=== PATIENT | female | born 1990 | race Caucasian/White ===

== ENCOUNTER 2016-08-19 13:08 | Emergency (ER) | payer OTHER ==
[2016-08-19 13:15] VITALS: BP 131/75; PULSE 68; TEMP 97.4; BMI 34.2
--- NOTE | 2016-08-19 13:50 | PDOC ---
History of Present Illness - General Chief Complaint: Sore Throat Stated Complaint: SORE THROAT, COUGH Time Seen by Provider: 08/19/16 13:33 History Source: Patient Exam Limitations: No Limitations - History of Present Illness Initial Comments: CHIEF COMPLAINT: 26 y/o afebrile female with no significant PMH c/o cold symptoms since last night. HISTORY OF PRESENT ILLNESS: The patient states she developed a fever of 100.8, dry cough and sore throat last night. She took tylenol and went to bed. This morning the symptoms persisted so she took tylenol and came here. She denies TRISTAN , neck pain, body aches, runny nose, n/v/d, CP, SOB, abd pain. Vital signs on arrival are within normal limits. REVIEW OF SYSTEMS: GENERAL/CONSTITUTIONAL: + fever/chills. No weakness. No weight change. HEAD, EYES, EARS, NOSE AND THROAT: No change in vision. No ear pain or discharge. +sore throat. CARDIOVASCULAR: No chest pain or shortness of breath. RESPIRATORY: +dry cough. No wheezing, or hemoptysis. GASTROINTESTINAL: No abd pain, nausea, vomiting, diarrhea. GENITOURINARY: No dysuria, frequency, or change in urination. MUSCULOSKELETAL: No joint or muscle swelling or pain. No neck or back pain. SKIN: No rash or easy bruising. NEUROLOGIC: No headache, vertigo, loss of consciousness, or loss of sensation. PHYSICAL EXAM: GENERAL: The patient is awake, alert, and fully oriented, in no acute distress. She is well appearing, in NAD or obvious discomfort. HEAD: Normal with no signs of trauma. ENT: Pupils equal, round and reactive to light, extraocular movements intact, sclera anicteric, conjunctiva clear. Neck supple. TMs normal b/l. LUNGS: Clear to auscultation bilaterally. Normal excursion. No respiratory distress or use of accessory muscles. CV: RRR, S1/S2, no MRG. Cap refill < 2 sec. ABDOMEN: Soft, non-distended, non-tender even to deep palpation, no hepatomegaly or splenomegaly, no masses. EXTREMITIES: Normal range of motion, no edema. NEUROLOGICAL: Normal speech, normal gait. CN II-XII grossly intact. PSYCH: Normal mood, normal affect. SKIN: Warm, dry, normal turgor, no rashes or lesions noted. Past History - Past Medical History Allergies/Adverse Reactions: Allergies Allergy/AdvReac Type Severity Reaction Status Date / Time No Known Allergies Allergy Verified 08/19/16 13:12 Home Medications: Ambulatory Orders NK [No Known Home Medication] 04/02/16 Other medical history: NONE - Psycho/Social/Smoking Cessation Hx Anxiety: No Suicidal Ideation: No Smoking History: Never smoked Have you smoked in the past 12 months: No Information on smoking cessation initiated: No Hx Alcohol Use: No Drug/Substance Use Hx: No Substance Use Type: None *Physical Exam - Vital Signs Last Vital Signs Temp Pulse Resp BP Pulse Ox 97.4 F L 68 18 131/75 100 08/19/16 13:13 08/19/16 13:13 08/19/16 13:13 08/19/16 13:13 08/19/16 13:13 Medical Decision Making - Medical Decision Making A/P: 26 y/o afebrile female with viral URI. Instructed the patient to continue taking 650mg of tylenol every 4 hours for fever, take over the counter cough medicine, gargle with warm salt water, drink plenty of fluids and get lots of rest and f/u with her doctor by the end of the week. Suggested she return to the ER with any worsening or concerning symptoms. The patient verbalizes understanding of all instructions, has no further questions and is awaiting discharge. *DC/Admit/Observation/Transfer Diagnosis at time of Disposition: Viral URI with cough - Discharge Dispostion Disposition: HOME Condition at time of disposition: Good - Referrals Referrals: Linnea Tian MD [Primary Care Provider] - - Patient Instructions Printed Discharge Instructions: DI for Viral Upper Respiratory Infection -- Adult Additional Instructions: Discharge Instructions: -Take 650mg of Tylenol every 4 hours for fever -Gargle with warm salt water -Take over the counter cough medicine -Drink plenty of fluids and get lots of rest -Follow up with your doctor by the end of the week Print Language: STATELESS
== END 2016-08-19 13:53 | disposition home or self-care (01) ==
LOC: JERFT 13:08
DX: J06.9 Acute upper respiratory infection, unspecified (principal); B97.89 Other viral agents as the cause of diseases classified elsewhere
CPT/HCPCS: 99281-25

== ENCOUNTER 2016-10-23 08:45 | Emergency (ER) | payer OTHER ==
[2016-10-23 08:49] VITALS: BP 134/73; PULSE 82; TEMP 99; BMI 31.8
--- NOTE | 2016-10-23 09:45 | PDOC ---
History of Present Illness - General Chief Complaint: Sore Throat Stated Complaint: FEVER, SORE THROAT, HEADACHE Time Seen by Provider: 10/23/16 09:08 History Source: Patient Exam Limitations: No Limitations - History of Present Illness Initial Comments: 10/23/16 09:45 26 yr male with c/o sore throat and cough for one day. Pt was sneezing this am. Father states he has allergies and asthma. no fever, no abd pain or vomiting. Past History - Past Medical History Allergies/Adverse Reactions: Allergies Allergy/AdvReac Type Severity Reaction Status Date / Time No Known Allergies Allergy Verified 10/23/16 08:49 Home Medications: Ambulatory Orders Penicillin V Potassium [Pen Vee K -] 500 mg PO TID #30 tablet 10/23/16 Other medical history: NONE - Psycho/Social/Smoking Cessation Hx Anxiety: No Suicidal Ideation: No Smoking History: Never smoked Have you smoked in the past 12 months: No Hx Alcohol Use: No Drug/Substance Use Hx: No Substance Use Type: None *Physical Exam - Vital Signs Last Vital Signs Temp Pulse Resp BP Pulse Ox 99.0 F 82 20 134/73 98 10/23/16 08:46 10/23/16 08:46 10/23/16 08:46 10/23/16 08:46 10/23/16 08:46 - Physical Exam General Appearance: Yes: Nourished, Appropriately Dressed HEENT: positive: EOMI, VONDA, Pharyngeal Erythema, Tonsillar Erythema, Nasal Congestion Neck: positive: Supple Respiratory/Chest: positive: Lungs Clear, Normal Breath Sounds Cardiovascular: positive: Regular Rhythm, Regular Rate Gastrointestinal/Abdominal: positive: Normal Bowel Sounds, Soft Extremity: positive: Normal Capillary Refill, Normal Inspection, Normal Range of Motion Integumentary: positive: Normal Color, Dry, Warm Neurologic: positive: Fully Oriented, Alert, Normal Mood/Affect, Normal Response , Motor Strength 5/5 Medical Decision Making - Medical Decision Making 10/23/16 10:05 cc: sore throat, nasal congestion will check for strep and flu pt speaking full sentences , no drooling or trismus *DC/Admit/Observation/Transfer Diagnosis at time of Disposition: Strep pharyngitis - Discharge Dispostion Disposition: HOME Condition at time of disposition: Good - Prescriptions Prescriptions: Penicillin V Potassium [Pen Vee K -] 500 mg PO TID #30 tablet - Patient Instructions Additional Instructions: take the penicillin as prescribed for 10 days, finish all the pills gargle with warm salt water 4-5 times a day ice pops, jello, ice cream soft foods take motrin or tylenol (over the counter) for pain as needed throw out toothbrush at end of treatment follow with your doctor if getting worse do not share utensils or drink from same source
== END 2016-10-23 10:17 | disposition home or self-care (01) ==
LOC: JERFT 08:45
DX: J02.0 Streptococcal pharyngitis (principal); B95.0 Streptococcus, group A, as the cause of diseases classified elsewhere
CPT/HCPCS: 87070; 87430; 87804; 99281-25

== ENCOUNTER 2019-03-19 17:10 | Emergency (ER) | payer OTHER ==
--- NOTE | 2019-03-19 17:21 | PDOC ---
Rapid Medical Evaluation Chief Complaint: Headache Time Seen by Provider: 03/19/19 17:18 Medical Evaluation: Allergies Allergy/AdvReac Type Severity Reaction Status Date / Time No Known Allergies Allergy Verified 10/23/16 08:49 03/19/19 17:19 I have performed a brief in-person evaluation of this patient. The patient presents with a chief complaint of: headache with dizziness / Nausea , saw Neurologist yesterday but not better with new treatments Pertinent physical exam findings: A&Ox3 I have ordered the following: UA, UCG The patient will proceed to the ED for further evaluation. Discharge Disposition - Diagnosis Headache - Referrals - Patient Instructions - Post Discharge Activity
[2019-03-19 17:22] VITALS: TEMP 99.3; BMI 28.3
--- NOTE | 2019-03-19 18:47 | PDOC ---
History of Present Illness - General Chief Complaint: Headache Stated Complaint: HEADACHE DIZZY Time Seen by Provider: 03/19/19 17:18 History Source: Patient - History of Present Illness Initial Comments: 03/19/19 19:33 28 year old female with history of migraines c/o headache, dizziness and nausea x1 day. patient reports that this is similar presentation of her previous migraines. patient is currently on every day medication to prevent migraines. denies weakness, abdominal pain, chest pain, urinary symptoms, fever/ vchill, neck pain / stiffness. denies photophobia/ phonophobia PMHX: Migraines 03/19/19 19:47 03/19/19 19:48 Past History - Past Medical History Allergies/Adverse Reactions: Allergies Allergy/AdvReac Type Severity Reaction Status Date / Time No Known Allergies Allergy Verified 03/19/19 17:19 Home Medications: Ambulatory Orders NK [No Known Home Medication] 03/19/19 COPD: No CHF: No - Immunization History Immunization Up to Date: Yes - Suicide/Smoking/Psychosocial Hx Smoking History: Never smoked Have you smoked in the past 12 months: No Information on smoking cessation initiated: No Hx Alcohol Use: No Drug/Substance Use Hx: No Substance Use Type: None Review of Systems - Review of Systems Able to Perform ROS?: Yes Is the patient limited Italian proficient: No Constitutional: No: Symptoms Reported, See HPI, Chills, Diaphoresis, Fever, Loss of Appetite, Malaise, Night Sweats, Weakness, Weight Stable, Unintentional Wgt. Loss, Unexplained wgt Loss, Other HEENTM: No: Symptoms Reported, See HPI, Eye Pain, Blurred Vision, Tearing, Recent change in vision, Double Vision, Cataracts, Ear Pain, Ocular Prothesis, Ear Discharge, Nose Pain, Nose Congestion, Tinnitus, Nose Bleeding, Hearing Loss , Throat Pain, Throat Swelling, Mouth Pain, Dental Problems, Difficulty Swallowing, Mouth Swelling, Other ABD/GI: Yes: Nausea. No: Symptoms Reported, See HPI, Abdominal Distended, Abd. Pain w/ defecation, Blood Streaked Bowels, Constipated, Diarrhea, Difficulty Swallowing, Poor Appetite, Poor Fluid Intake, Rectal Bleeding, Vomiting, Indigestion, Abdominal cramping, Tarry Stools, Other Neurological: Yes: Headache, Dizziness. No: Symptoms reported, See HPI, Numbness, Paresthesia, Pre-Existing Deficit, Seizure, Tingling, Tremors, Weakness, Unsteady Gait, Ataxia, Other *Physical Exam - Vital Signs Last Vital Signs Temp Pulse Resp BP Pulse Ox 99.3 F 76 17 151/75 100 03/19/19 17:19 03/19/19 17:19 03/19/19 17:19 03/19/19 17:19 03/19/19 17:19 - Physical Exam General Appearance: Yes: Appropriately Dressed HEENT: positive: Normal ENT Inspection Respiratory/Chest: positive: Lungs Clear, Normal Breath Sounds Cardiovascular: positive: Regular Rhythm, Regular Rate Gastrointestinal/Abdominal: positive: Normal Bowel Sounds, Soft. negative: Tender Extremity: positive: Normal Capillary Refill, Normal Inspection, Normal Range of Motion Integumentary: positive: Normal Color, Dry, Warm Neurologic: positive: cloth neutralizer II-XII NML intact, Fully Oriented, Alert, Normal Mood/ Affect, Normal Response, Motor Strength 12/06 ED Treatment Course - LABORATORY CBC & Chemistry Diagram: 03/19/19 19:05 03/19/19 19:05 Progress Note - Progress Note Progress Note: A: migraines P: cbc cmp ua IVF reglan benadryl Medical Decision Making - Medical Decision Making 03/19/19 22:01 patient is now feeling better US: hepatic steaosis. will d/c home *DC/Admit/Observation/Transfer Diagnosis at time of Disposition: Elevated LFTs Headache Qualifiers: Headache type: unspecified Headache chronicity pattern: acute headache Intractability: not intractable Qualified Code(s): R51 - Headache - Discharge Dispostion Disposition: HOME - Referrals Referrals: Brianne Blunt DO [Staff Physician] - - Patient Instructions Printed Discharge Instructions: DI for Migraine Additional Instructions: drink plenty of fluids. follow-up with your neurologist as soon as possible. Continue your migraine medications. You are also given a referral for a machinist mate. Follow-up with the primary doctor or a machinist mate for elevated liver test. Return to the emergency room for any worsening symptoms. - Post Discharge Activity Forms/Work/School Notes: Back to Work
[2019-03-19] MEDS ORDERED: METOCLOPRAMIDE HCL INJECTION 10 MG/2 ML VIAL IVPB ONE (18:50)
[2019-03-19] MEDS ORDERED: SODIUM CHLORIDE 1,000 ML IV STA (18:50)
[2019-03-19] MEDS ORDERED: METOCLOPRAMIDE HCL INJECTION 10 MG/2 ML VIAL ONE (19:17)
[2019-03-19 19:39] LABS: BASO % 0.6 % (0-2.0); EOS % 3.4 % (0-4.5); HEMATOCRIT 41.1 % (32.4-45.2); LYMPH % 27.1 % (8-40); MCH 29.6 pg (25.7-33.7); MCHC 34.2 g/dl (32.0-36.0); MEAN CELL VOLUME 86.6 fl (80-96); MEAN PLT VOLUME 9.9 fl (7.5-11.1); MONO % 5.6 % (3.8-10.2); NEUT % 63.3 % (42.8-82.8); PLATELET COUNT 269 K/MM3 (134-434); RBC 4.75 M/mm3 (3.60-5.2); RDW 13.5 % (11.6-15.6); WHITE BLOOD COUNT 11.6 K/mm3 (4.0-10.0)
[2019-03-19 19:45] LABS: URINE APPEARANCE CLEAR; URINE BILIRUBIN NEGATIVE (NEGATIVE); URINE COLOR YELLOW; URINE GLUCOSE (UA) NEGATIVE (NEGATIVE); URINE KETONE NEGATIVE (NEGATIVE); URINE LEUK ESTERASE NEGATIVE (NEGATIVE); URINE NITRITE NEGATIVE (NEGATIVE); URINE PROTEIN NEGATIVE (NEGATIVE); URINE UROBILINOGEN 0.2 mg/dL (0.2-1.0)
[2019-03-19 20:05] LABS: ALBUMIN 3.8 g/dl (3.4-5.0); BILIRUBIN,TOTAL 0.3 mg/dL (0.2-1); BLOOD UREA NITROGEN 11.3 mg/dL (7-18); CALCIUM 9.5 mg/dL (8.5-10.1); CREATININE 0.7 mg/dL (0.55-1.3); POTASSIUM 4.3 mmol/L (3.5-5.1); TOT PROT 7.1 g/dl (6.4-8.2)
[2019-03-19] MEDS ORDERED: KETOROLAC TROMETHAMINE 30 MG/1 ML VIAL IVPUSH ONE (21:04)
[2019-03-19] MEDS ORDERED: KETOROLAC TROMETHAMINE 30 MG/1 ML VIAL ONE (21:06)
[2019-03-19 22:15] VITALS: BP 130/75; PULSE 70
== END 2019-03-19 22:15 | disposition home or self-care (01) ==
LOC: JER 17:10
PROC: 3E033GC Introduction of Other Therapeutic Substance into Peripheral Vein, Percutaneous Approach (ICD-10-PCS; principal; 2019-03-19)
PROC: 3E0333Z Introduction of Anti-inflammatory into Peripheral Vein, Percutaneous Approach (ICD-10-PCS; 2019-03-19)
PROC: 3E0337Z Introduction of Electrolytic and Water Balance Substance into Peripheral Vein, Percutaneous Approach (ICD-10-PCS; 2019-03-19)
DX: R94.5 Abnormal results of liver function studies (principal)
CPT/HCPCS: 36415; 76705-TC; 80053; 81003; 84703; 85025; 96361; 96374; 96375; 99283-25; J7030

== ENCOUNTER 2020-02-02 10:45 | Inpatient (IN) | payer OTHER ==
[2020-02-02] MEDS ORDERED: CITRIC ACID/SODIUM CITRATE 30 ML UNIT-DOSE CUP PO ONE (12:49)
--- NOTE | 2020-02-02 12:53 | HP ---
Past Medical History - Admission Chief Complaint: Scheduled RLTCS History of Present Illness: 29yo @ 39.0wks by LMP/sono, VINNY 02/08/20 here for RLTCS, no BTL secondary to late signing of consent No VB/LOF. No ctx. 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: No: Alzheimer's, CVA, Dementia, Migraine, Multiple Sclerosis, Peripheral Neuropathy, Parkinson's, Seizure, Syncope, TIA, Vertigo, Other Cardiovascular: No: AFIB, Aneurysm, Aortic Insufficiency, Aortic Stenosis, CAD, CHF, Deep Vein Thrombosis, HTN, Hyperlipdemia, GA, Mitral Insufficiency, Mitral Stenosis, Murmur, Pulmonary Hypertension, Other Pulmonary: No: Asthma, Bronchitis, Cancer, COPD, O2 Dependent, Pneumonia, Previously Intubated, Pulmonary Embolus, Pulmonary Fibrosis, Sleep Apnea, Other Gastrointestinal: No: Ascites, Cancer, Constipation, Crohn's Disease, Diverticulitis, Diverticulosis, Esophageal Varices, Gastritis, GERD, GI Bleed, Hemorrhoids, Hiatal Hernia, Inflamatory Bowel Disease, Irritable Bowel Disease, Pancreatitis, Peptic Ulcer Disease, Ulcerative Colitis, Other Hepatobiliary: No: Cirrhosis, Cholelithiasis, Cholecystitis, Choledocholithiasis, Hepatitis A, Hepatitis B, Hepatitis C, Other Reproductive: No: Ectopic , Endometriosis, Fibroids, PID, Polycystic Ovary Syndrome, Postmenopausal, Other ...: 3 ...Para: 2 ...Term: 2 ...: 0 ...Spon : 0 ...Induced : 0 ... Weeks Gestation by Dates: 39.0 Heme/Onc: Yes: Anemia Infectious Disease: No: AIDS, C-Diff, Herpes Zoster, HIV, MRSA, STD's, Tuberculosis, VREF, Other Psych: No: Addictions, Anxiety, Bipolar, Depression, Panic, Psychosis, Schizophrenia, Other - Past Surgical History Past Surgical History: Yes: Hx Myomectomy: No Hx Transabdominal Cerclage: No - Smoking History Smoking history: Never smoked Have you smoked in the past 12 months: No - Alcohol/Substance Use Hx Alcohol Use: No History of Substance Use: reports: None - Social History Usual Living Arrangement: Yes: With Spouse Do you think of yourself as: Straight/Heterosexual ADL: Independent History of Recent Travel: No Home Medications - Allergies Allergies/Adverse Reactions: Allergies Allergy/AdvReac Type Severity Reaction Status Date / Time No Known Allergies Allergy Verified 02/02/20 12:39 - Home Medications Home Medications: Ambulatory Orders Breast Pump 1 each MC 5XD 30 Days #1 each 02/02/20 Ferrous Sulfate [Feosol] 325 mg PO DAILY #30 tablet 02/02/20 Ibuprofen 600 mg PO Q6H PRN #30 tablet 02/02/20 Oxycodone HCl/Acetaminophen [Percocet 5-325 mg Tablet -] 1 - 2 tab PO Q6H PRN #20 tab MDD 4 02/02/20 Review of Systems - Review of Systems Constitutional: reports: No Symptoms Cardiovascular: reports: No Symptoms Respiratory: reports: No Symptoms Physical Exam - Maternity - Abdominal Exam/OB Number of Fetuses: Single Presentation: Vertex Contractions: No Monitor Mode: External Heart Rate Location: [facility] Category: I Accelerations: Non-Uniform Decelerations: None - Vaginal Exam/OB Vaginal Bleeding: No Speculum Exam: No Amniotic Membrane Status: Intact Presentation: Vertex/Position - Physical Exam Edema: No Imaging - Results Ultrasound: Report Reviewed Problem List - Problems (1) 39 weeks gestation of Code(s): Z3A.39 - 39 WEEKS GESTATION OF Assessment/Plan 29yo @ 39+wks here for scheduled RLTCS Admit to L&D NPO,IVFs Cat I tracing Spinal, Ybarra, SCDs, Ancef Risks reviewed including bleeding, infection and injury to bladder/bowel/vessels/adnexa/nerves. Unable to do BTL as patient signed consent on 01/12/2020, less than 30 days. All questions answered; consent signed. Carla Tena MD
[2020-02-02] MEDS ORDERED: ELECTROLYTE-148 SOLN 1,000 ML IV SCH (13:00)
[2020-02-02 13:17] VITALS: BMI 37.0
[2020-02-02] MEDS ORDERED: PHENYLEPHRINE HCL 10 MG/1 ML SINGLE DOSE VIAL ONE (14:10)
[2020-02-02] MEDS ORDERED: ceFAZolin SODIUM 1 GM VIAL ONE (14:10)
[2020-02-02] MEDS ORDERED: morphine SULFATE/PF 0.5 MG/ML (2cc Syringe - QUVA) ONE (14:10)
[2020-02-02] MEDS ORDERED: MIDAZOLAM HCL 2 MG/2 ML SINGLE DOSE VIAL ONE (15:02)
[2020-02-02] MEDS ORDERED: OXYTOCIN 10 UNITS/ML VIAL ONE ×2 (15:17)
[2020-02-02] MEDS ORDERED: IBUPROFEN 600 MG TABLET (FP) PO PRN (15:33)
[2020-02-02] MEDS ORDERED: oxyCODONE HCL 5 MG TABLET PO PRN (15:33)
[2020-02-02] MEDS ORDERED: METHYLERGONOVINE MALEATE 0.2 MG/1 ML AMP IM PRN (15:33)
--- NOTE | 2020-02-02 15:33 | OP ---
Operative Note - Note: Operative Date: 02/02/20 Pre-Operative Diagnosis: 2 prior C/S, desires Repeat Operation: Repeat Findings: VFI, Direct OP, Double nuchal, true knot, Apgars 9/9. Weight 7lbs 4oz. Left tube and ovary palpably normal, Right tube and ovary not visualized secondary to adhesions Implants: Surgicele Post-Operative Diagnosis: Same as Pre-op Surgeon: Julieth Tena Molder Inflated Ball: Markie Alonso Anesthesiologist/PRODUCTION TRUCK DRIVER: Tre Maza Anesthesia: Spinal Estimated Blood Loss (mls): 800 Drains, Volume Out (mls): 200 (clear urine) Operative Report Dictated: Yes
[2020-02-02] MEDS ORDERED: IBUPROFEN 800 MG/8 ML IJ IVPB PRN (15:34)
[2020-02-02] MEDS: OXYTOCIN 20 UNITS in 0.9% NS 20 UNIT/1,000 ML INFUS.BAG IV SCH ×2 (16:00→23:52)
[2020-02-02] MEDS: FERROUS SO4 325 MG TABLET (FP) PO SCH (18:37)
[2020-02-03] MEDS: ACETAMINOPHEN 325 MG TABLET (FP) PO PRN ×3 (06:00→21:21)
[2020-02-03] MEDS: SIMETHICONE 80 MG TAB.CHEW (FP) PO PRN ×3 (06:00→21:21)
[2020-02-03] MEDS: IBUPROFEN 600 MG TABLET (FP) PO PRN ×3 (06:00→21:21)
--- NOTE | 2020-02-03 07:25 | PN ---
Post Progress Note - Subjective Subjective: Pain controlled. No fevers/chills. No N/V. Post Day: 1 Type of Delivery: Repeat C/S Vital Signs: Vital Signs Temperature 98.8 F 02/03/20 06:00 Pulse Rate 74 02/03/20 06:00 Respiratory Rate 18 02/03/20 06:00 Blood Pressure 102/65 02/03/20 06:00 O2 Sat by Pulse Oximetry (%) 100 02/02/20 16:10 Uterus: Yes: Fundus Firm Incision: Yes: Dressing dry and intact, Ubtch intact Abdomen/GI: Yes: Abdomen soft, Tolerating PO Lochia: Yes: Rubra Lochia, amount: Small Extremities: Yes: Calves non-tender Perineum: Yes: Intact Activity: Ambulating Problem List - Problems (1) 39 weeks gestation of Code(s): Z3A.39 - 39 WEEKS GESTATION OF Assessment/Plan 29yo s/p RLTCS, POD#1 Routine PP care PO pain control Labs pending OOB, ambulate D/C to [place] Anticipate D/C by POD#3 Carla Tena MD
[2020-02-03] MEDS: FERROUS SO4 325 MG TABLET (FP) PO SCH ×2 (08:00→17:13)
[2020-02-03 08:11] LABS: BASO % 0.3 % (0-2.0); EOS % 1.1 % (0-4.5); HEMATOCRIT 32.5 % (32.4-45.2); HEMOGLOBIN 10.7 GM/dL (10.7-15.3); LYMPH % 15.6 % (8-40); MCH 29.2 pg (25.7-33.7); MCHC 33.1 g/dl (32.0-36.0); MEAN CELL VOLUME 88.4 fl (80-96); MEAN PLT VOLUME 10.3 fl (7.5-11.1); MONO % 5.8 % (3.8-10.2); NEUT % 77.2 % (42.8-82.8); PLATELET COUNT 176 K/MM3 (134-434); RBC 3.67 M/mm3 (3.60-5.2); RDW 13.6 % (11.6-15.6); WHITE BLOOD COUNT 11.3 K/mm3 (4.0-10.0)
--- NOTE | 2020-02-03 10:03 | PN ---
Progress Note (short form) - Note Progress Note: s/p C/s with spinal and intrathecal Duramorph. Doing well, no complaints, ambulating. All questions answered.
[2020-02-03] MEDS: PRENATAL VITAMINS W/ FOLIC ACID TABLET (FP) PO SCH (10:09)
--- NOTE | 2020-02-03 11:24 | OP ---
DATE OF OPERATION: 02/02/2020 PREOPERATIVE DIAGNOSES: A 39-week , 2 prior sections, desires repeat section. POSTOPERATIVE DIAGNOSES: A 39-week , 2 prior sections, desires repeat section. PROCEDURE: Repeat low transverse section. ANESTHESIA: Spinal. ANESTHESIOLOGIST: Tre Maza MD SURGEON: Julieth Tena MD MECHANICAL LEAD: ROXANA Zaldivar ESTIMATED BLOOD LOSS: 800. INTRAVENOUS FLUIDS: Per anesthesia record. URINE OUTPUT: Clear urine, 200 mL, at the end of the procedure. FINDINGS: A viable female , direct OP presentation, double nuchal, true knot, Apgars 9, 9, weight pending. Left tube and ovary palpably normal. Right tube and ovary not visualized secondary to adhesions. COMPLICATIONS: None. CONDITION: Stable to recovery room. NATURE OF THE PROCEDURE: After the appropriate consents were signed patient was taken to the operating room. Spinal anesthesia was administered. The abdomen was prepped and draped in the normal sterile fashion. A sterile Ybarra catheter was inserted prior to entry into the operating room. Timeout was performed, confirming correct patient and procedure. A Pfannenstiel incision was made through the previous incision, carried through the underlying layers until the fascia was nicked in the midline. Fascia was noted to be dense and the fascia was extended laterally with the scalpel and with the Bovie. The inferior aspect of the fascia was grasped with the Lula clamps, tented upwards and the rectus muscles were dissected off with the Mckeon scissors. Attention was then paid to the superior aspect which had to be taken down with the scalpel again secondary to dense adhesions. The rectus muscles were sharply in the midline with the scalpel. There were several thin filmy dense adhesions from the anterior uterine wall to the anterior abdominal wall. The thin adhesions were taken down with the Bovie and Metzenbaum scissors. Dense adhesions, however, could not be taken down. There were dense adhesions to the uterine fundus that prevented mobilization and the ability to exteriorize the uterus postprocedure. There were adhesions on the lateral aspect of the uterus which also prevented visualization of the adnexa completely. The uterus was incised in a low transverse fashion. Clear amniotic fluid was noted. The infant was noted to be in direct OP presentation. The head was delivered without difficulty as were the remaining shoulder and body. The cord was clamped and cut. The infant was handed off to the waiting NICU staff. The placenta was then removed manually. The uterus was cleared of all clot and debris. Again, the uterus could not be exteriorized secondary to adhesions. The hysterotomy was closed in 2 layers with a 1-0 and 0 Vicryl to achieve hemostasis. Intercede was then placed over the patient's hysterotomy as well as areas where the filmy adhesions had been taken down. This was placed to prevent further adhesion formation. The fascia was then closed with a 0 Vicryl. The subcutaneous fat was closed with a 3-0 plain. The skin was closed with leobardo. All sponge, lap, needle counts were correct x3. The patient did receive Ancef at the start of the procedure. Patient did consent for tubal ligation; however, it was done under 30 days and could not be performed at the time of the operation because of this. However, patient was counseled that secondary to adhesions tubal ligation could not be performed regardless and that she will have to pursue LARCs or an interval salpingectomy in the future. She was taken from the operating room to the recovery area in stable condition. MD JAMIE SALGUERO/[id number] MTDTanya
[2020-02-03] MEDS ORDERED: BISACODYL 10 MG SUPP.RECT RC PRN (15:33)
--- NOTE | 2020-02-04 06:58 | DS ---
Physical Exam-DECK ENGINEER Vital Signs: Vital Signs Temperature 98.7 F 02/03/20 22:00 Pulse Rate 86 02/03/20 22:00 Respiratory Rate 18 02/03/20 22:00 Blood Pressure 134/84 02/03/20 22:00 O2 Sat by Pulse Oximetry (%) 100 02/02/20 16:10 Constitutional: Yes: Well Nourished, No Distress, Calm Eyes: Yes: WNL, Conjunctiva Clear, EOM Intact HENT: Yes: WNL, Atraumatic, Normocephalic Neck: Yes: WNL, Supple, Trachea Midline Cardiovascular: Yes: WNL, Regular Rate and Rhythm Respiratory: Yes: WNL, Regular, CTA Bilaterally Gastrointestinal: Yes: WNL ...Rectal Exam: Yes: WNL Renal/: Yes: WNL ....Post : Yes: Uterus firm, Uterus non-tender, Slight lochia rubra Breast(s): Yes: WNL Musculoskeletal: Yes: WNL Extremities: Yes: WNL Integumentary: Yes: WNL Wound/Incision: Yes: Clean/Dry, Well Approximated, Sutures Intact Neurological: Yes: WNL, Alert, Oriented ...Motor Strength: WNL Psychiatric: Yes: WNL, Alert, Oriented Labs: CBC, BMP 02/03/20 07:19 Delivery - Delivery Section: Repeat, Low Flap Transverse Type of Anesthesia: Spinal Episiotomy/Laceration: None EBL (cc): 800 Delivery, Single - Stages of Labor Date of Delivery: 02/02/20 Time of Delivery: 14:40 Time Placenta Delivered: 14:41 Placenta: Yes: Expressed - Condition of Infant Ophthalmic Photographer/Human Resources Safety Manager Present: Yes Name: Brittany Olmos Gender: Female Weight: 7 lb 4 oz Position: OP Total Hours ROM (Hrs/Mins): 2 - 1 Minute Total Score: 9 5 Minutes Total Score: 9 - Feeding Plan Initial Plan: Elected not to breastfeed exclusively throughout hospitalization Discharge Summary Problems reviewed: Yes Reason For Visit: Current Active Problems 39 weeks gestation of (Acute) Procedures: Principal: repeat c/s Hospital Course: no complication Plan of Treatment: follow up HR 1 week Condition: Stable - Instructions Diet, Activity, Other Instructions: Regular Diet Follow up in one week to have your leobardo removed Referrals: Julieth Tena MD [Staff Physician] - Disposition: HOME - Home Medications Comprehensive Discharge Medication List: Ambulatory Orders Breast Pump 1 each MC 5XD 30 Days #1 each 02/02/20 Ferrous Sulfate [Feosol] 325 mg PO DAILY #30 tablet 02/02/20 Ibuprofen 600 mg PO Q6H PRN #30 tablet 02/02/20 Oxycodone HCl/Acetaminophen [Percocet 5-325 mg Tablet -] 1 - 2 tab PO Q6H PRN #20 tab MDD 4 02/02/20
[2020-02-04 08:29] VITALS: BP 113/75; PULSE 83; TEMP 98.6
[2020-02-04] MEDS: FERROUS SO4 325 MG TABLET (FP) PO SCH (09:02)
[2020-02-04] MEDS: PRENATAL VITAMINS W/ FOLIC ACID TABLET (FP) PO SCH (09:03)
[2020-02-04] MEDS: IBUPROFEN 600 MG TABLET (FP) PO PRN (11:18)
[2020-02-04] MEDS: ACETAMINOPHEN 325 MG TABLET (FP) PO PRN (11:19)
[2020-02-04] MEDS: SIMETHICONE 80 MG TAB.CHEW (FP) PO PRN (11:19)
--- NOTE | 2020-02-07 17:48 | PATH ---
Surgical Pathology Report Patient Name: MELINA ALBERTO Med. Rec. 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 TRIVASCULAR CORD WITH A TRUE KNOT. MEMBRANES WITH NO DIAGNOSTIC ABNORMALITIES. Electronically Signed Monique Wharton M.D. Gross Description The specimen is received fresh labeled placenta and is a 394 gram, 19.5 x 18.0 x 2.2 cm. placenta with attached membranes and umbilical cord. The attached membranes are sullivan, translucent with focal opacities and insert marginally. The umbilical cord measures 51 cm. in length and averages 1.2 cm. in diameter. The cord inserts eccentrically, 1 cm. to the nearest margin. There is a true knot present in the umbilical cord. Cut surface of the umbilical cord reveals 3 vessels. The surface is solorzano-blue with minimal fibrin deposition and appropriate caliber vessels. The maternal surface is red-brown with focal defects. Sectioning reveals red-brown, spongy parenchyma. No lesions are identified. Projection Engineer sections are submitted in three cassettes as follows: 1- membrane rolls and umbilical cord; 2-3- full thickness sections of placenta. /02/03/2020 saudi/02/03/2020
== END 2020-02-04 13:15 | disposition home or self-care (01) | DRG 540 ==
LOC: J3W 10:45 → JLDR 11:02 → J3W 11:34 → JLDR 12:58 → J3W 16:40
PROVIDERS: ADMIT Obstetrics & Gynecology; ATTEND Obstetrics & Gynecology
PROC: 10D00Z1 Extraction of Products of Conception, Low, Open Approach (ICD-10-PCS; principal; 2020-02-02)
PROC: 0DNW0ZZ Release Peritoneum, Open Approach (ICD-10-PCS; 2020-02-02)
DX: O34.211 Maternal care for low transverse scar from previous cesarean delivery (principal); O69.2XX0 Labor and delivery complicated by other cord entanglement, with compression, not applicable or unspecified; O99.89 Other specified diseases and conditions complicating pregnancy, childbirth and the puerperium; N73.6 Female pelvic peritoneal adhesions (postinfective); Z3A.39 39 weeks gestation of pregnancy; Z37.0 Single live birth
CPT/HCPCS: 36415; 85025; 88307-TC

== ENCOUNTER 2021-08-01 10:04 | Emergency (ER) | payer OTHER ==
[2021-08-01 10:23] VITALS: BP 129/79; PULSE 77; TEMP 97.9; BMI 36.6
[2021-08-01 11:42] LABS: BASO % 0.4 % (0-2.0); EOS % 2.3 % (0-4.5); HEMATOCRIT 38.7 % (32.4-45.2); HEMOGLOBIN 13.5 GM/dL (10.7-15.3); LYMPH % 19.9 % (8-40); MCH 29.7 pg (25.7-33.7); MCHC 34.8 g/dl (32.0-36.0); MEAN CELL VOLUME 85.5 fl (80-96); MONO % 6.7 % (3.8-10.2); NEUT % 70.7 % (42.8-82.8); PLATELET COUNT 186 10^3/uL (134-434); RBC 4.53 M/mm3 (3.60-5.2); RDW 12.8 % (11.6-15.6); WHITE BLOOD COUNT 9.4 K/mm3 (4.0-10.0)
[2021-08-01 11:51] LABS: EPI CELLS >36 /uL (0-25.1); HYALINE CASTS 2 /uL (0-3.1); PH,URINE 5.5 (5.0-8.0); URINE APPEARANCE CLOUDY; URINE BACTERIA 3567 /uL (0-1359); URINE BILIRUBIN NEGATIVE (NEGATIVE); URINE COLOR YELLOW; URINE GLUCOSE (UA) NEGATIVE (NEGATIVE); URINE KETONE TRACE (NEGATIVE); URINE LEUK ESTERASE NEGATIVE (NEGATIVE); URINE NITRITE NEGATIVE (NEGATIVE); URINE PROTEIN TRACE (NEGATIVE); URINE RBC 27 /uL (0-23.9); URINE UROBILINOGEN 0.2 mg/dL (0.2-1.0); URINE WBC 7 /uL (0-25.8)
[2021-08-01 12:04] LABS: CALCIUM 8.9 mg/dL (8.5-10.1)
[2021-08-01 12:06] LABS: ALBUMIN 3.5 g/dl (3.4-5.0); BLOOD UREA NITROGEN 7.4 mg/dL (7-18)
[2021-08-01 12:10] LABS: CREATININE 0.6 mg/dL (0.55-1.3); TOT PROT 6.8 g/dl (6.4-8.2)
[2021-08-01 12:12] LABS: BILIRUBIN,TOTAL 0.6 mg/dL (0.2-1)
== END 2021-08-01 15:08 | disposition home or self-care (01) ==
LOC: JER 10:04 → JERFT 10:04
DX: O26.851 Spotting complicating pregnancy, first trimester (principal); Z3A.01 Less than 8 weeks gestation of pregnancy
CPT/HCPCS: 36415; 76817-TC; 80053; 81003; 84702; 84703; 85025; 86850; 86900; 86901; 87086; 99284-25

== ENCOUNTER 2021-10-17 04:19 | Day surgery (SDC) | payer OTHER ==
[2021-10-15 11:49] VITALS: BMI 36.6
[2021-10-17] MEDS ORDERED: LIDOCAINE HCL/PF 2% SDV 5ML VIAL ONE (10:34)
[2021-10-17] MEDS ORDERED: ONDANSETRON 4 MG/2 ML VIAL ONE (10:34)
[2021-10-17] MEDS ORDERED: DEXAMETHASONE SOD PHOSPHATE 4 MG/1 ML VIAL ONE (10:34)
[2021-10-17] MEDS ORDERED: PROPOFOL 20 ML ONE (10:34)
[2021-10-17] MEDS ORDERED: ROCURONIUM BROMIDE 100 MG/10 ML VIAL ONE (10:34)
[2021-10-17] MEDS ORDERED: MIDAZOLAM HCL 2 MG/2 ML SINGLE DOSE VIAL ONE (10:35)
[2021-10-17] MEDS ORDERED: DOXYCYCLINE INJECTION 100 MG in DEXTROSE 5%-WATER 100 ML IVPB ONE (11:59)
[2021-10-17] MEDS ORDERED: DOXYCYCLINE HYCLATE 100 MG VIAL IVPB ONE (12:35)
[2021-10-17 16:33] VITALS: BP 113/56; PULSE 80; TEMP 97.8
== END 2021-10-17 15:40 | disposition home or self-care (01) ==
LOC: JASU-SURG 04:19
PROVIDERS: ATTEND Student in an Organized Health Care Education/Training Program
PROC: 10D17ZZ Extraction of Products of Conception, Retained, Via Natural or Artificial Opening (ICD-10-PCS; principal; 2021-10-17 11:00)
DX: O03.4 Incomplete spontaneous abortion without complication (principal)
CPT/HCPCS: 88305-TC; 94760

== ENCOUNTER 2021-11-17 17:06 | Emergency (ER) | payer OTHER ==
[2021-11-17 17:18] VITALS: TEMP 97.3; BMI 34.7
[2021-11-17] MEDS ORDERED: ACETAMINOPHEN 500 MG TABLET (FP) PO ONE (18:03)
[2021-11-17] MEDS ORDERED: ACETAMINOPHEN 325 MG TABLET (FP) ONE (18:10)
[2021-11-17 18:51] LABS: BLOOD UREA NITROGEN 11.6 mg/dL (7-18); CALCIUM 9.5 mg/dL (8.5-10.1)
[2021-11-17 18:52] LABS: ALBUMIN 4.2 g/dl (3.4-5.0)
[2021-11-17 18:56] LABS: BILIRUBIN,TOTAL 0.2 mg/dL (0.2-1); TOT PROT 7.8 g/dl (6.4-8.2)
[2021-11-17 18:58] LABS: BASO % 0.4 % (0-2.0); EOS % 1.5 % (0-4.5); HEMATOCRIT 41.3 % (32.4-45.2); LYMPH % 14.8 % (8-40); MCH 28.7 pg (25.7-33.7); MCHC 33.9 g/dl (32.0-36.0); MEAN CELL VOLUME 84.7 fl (80-96); MEAN PLT VOLUME 9.4 fl (7.5-11.1); MONO % 5.2 % (3.8-10.2); NEUT % 78.1 % (42.8-82.8); PLATELET COUNT 268 10^3/uL (134-434); RBC 4.88 M/mm3 (3.60-5.2); RDW 12.3 % (11.6-15.6); WHITE BLOOD COUNT 12.6 K/mm3 (4.0-10.0)
[2021-11-17 20:56] LABS: EPI CELLS 4 /uL (0-25.1); HYALINE CASTS 0 /uL (0-3.1); URINE APPEARANCE CLEAR; URINE BACTERIA 4 /uL (0-1359); URINE BILIRUBIN NEGATIVE (NEGATIVE); URINE COLOR RED; URINE GLUCOSE (UA) NEGATIVE (NEGATIVE); URINE KETONE NEGATIVE (NEGATIVE); URINE LEUK ESTERASE TRACE (NEGATIVE); URINE NITRITE NEGATIVE (NEGATIVE); URINE PROTEIN 2+ (NEGATIVE); URINE RBC 2597 /uL (0-23.9); URINE UROBILINOGEN 0.2 mg/dL (0.2-1.0); URINE WBC 18 /uL (0-25.8)
[2021-11-17 20:57] VITALS: BP 133/77; PULSE 82
== END 2021-11-17 21:32 | disposition home or self-care (01) ==
LOC: JER 17:06
DX: N93.9 Abnormal uterine and vaginal bleeding, unspecified (principal); R10.2 Pelvic and perineal pain
CPT/HCPCS: 36415; 76830-TC; 80053; 81003; 84703; 85025; 86850; 86900; 86901; 99284-25

== ENCOUNTER 2021-11-20 04:09 | Day surgery (SDC) | payer OTHER ==
[2021-11-16 13:11] VITALS: BMI 34.7
[2021-11-20] MEDS ORDERED: BUPIVACAINE HCL/PF 0.5% (5MG/ML) 10 ML VIAL ONE (07:13)
[2021-11-20] MEDS ORDERED: MIDAZOLAM HCL 2 MG/2 ML SINGLE DOSE VIAL ONE (07:15)
[2021-11-20] MEDS ORDERED: LIDOCAINE HCL/PF 2% SDV 5ML VIAL ONE (07:15)
[2021-11-20] MEDS ORDERED: ROCURONIUM BROMIDE 50 MG/5 ML SYRINGE ONE (07:15)
[2021-11-20] MEDS ORDERED: PROPOFOL 20 ML ONE (07:15)
[2021-11-20] MEDS ORDERED: DEXAMETHASONE SOD PHOSPHATE 4 MG/1 ML VIAL ONE (07:15)
[2021-11-20] MEDS ORDERED: BUPIVACAINE HCL/PF 0.5% (5MG/ML) 10 ML VIAL IJ ONE ×2 (08:08→08:10)
[2021-11-20] MEDS ORDERED: oxyCODONE HCL 5 MG TABLET PO PRN (08:25)
[2021-11-20] MEDS ORDERED: ONDANSETRON 4 MG/2 ML VIAL IVPUSH PRN (08:25)
[2021-11-20] MEDS ORDERED: LACTATED RINGERS SOLUTION 1,000 ML IV SCH (08:30)
[2021-11-20] MEDS ORDERED: HYDROmorphone HCl 2 MG/ML VIAL ONE (10:12)
[2021-11-20] MEDS ORDERED: ONDANSETRON 4 MG/2 ML VIAL ONE (11:30)
[2021-11-20] MEDS ORDERED: ONDANSETRON 4 MG/2 ML VIAL IVPB ONE (11:39)
[2021-11-20] MEDS ORDERED: HYDROmorphone HCl 2 MG/ML VIAL IVPUSH ONE (12:45)
[2021-11-20 14:22] VITALS: BP 141/70; PULSE 66; TEMP 97.4
== END 2021-11-20 13:50 | disposition home or self-care (01) ==
LOC: JASU-SURG 04:09
PROVIDERS: ATTEND Student in an Organized Health Care Education/Training Program
PROC: 0UT74ZZ Resection of Bilateral Fallopian Tubes, Percutaneous Endoscopic Approach (ICD-10-PCS; principal; 2021-11-20 07:30)
DX: Z30.2 Encounter for sterilization (principal); N99.4 Postprocedural pelvic peritoneal adhesions
CPT/HCPCS: 81025; 88302-TC; 94760

== ENCOUNTER 2021-12-17 04:37 | Emergency (ER) | payer OTHER ==
[2021-12-17 04:51] VITALS: BP 118/62; PULSE 120; TEMP 99.2; BMI 36.6
[2021-12-17] MEDS ORDERED: ACETAMINOPHEN 325 MG TABLET (FP) PO ONE (05:14)
[2021-12-17] MEDS ORDERED: ONDANSETRON 4 MG TABLET PO ONE (05:15)
[2021-12-17] MEDS ORDERED: ONDANSETRON *ODT* 4 MG TABLET ONE (05:26)
[2021-12-17] MEDS ORDERED: ACETAMINOPHEN 325 MG TABLET (FP) ONE (05:26)
[2021-12-17] MEDS ORDERED: KETOROLAC TROMETHAMINE 30 MG/1 ML VIAL IM ONE (06:09)
[2021-12-17] MEDS ORDERED: KETOROLAC TROMETHAMINE 30 MG/1 ML VIAL ONE (06:25)
== END 2021-12-17 06:58 | disposition home or self-care (01) ==
LOC: JER 04:37
PROC: 3E0233Z Introduction of Anti-inflammatory into Muscle, Percutaneous Approach (ICD-10-PCS; principal; 2021-12-17)
DX: J09.X2 Influenza due to identified novel influenza A virus with other respiratory manifestations (principal)
CPT/HCPCS: 0241U-QW; 71046-TC-FY; 93005; 93010; 99285-25

== ENCOUNTER 2022-08-17 17:25 | Emergency (ER) | payer OTHER ==
[2022-08-17 18:01] VITALS: BP 135/83; PULSE 79; RESP 16; TEMP 98.3; BMI 38.0
[2022-08-17] MEDS ORDERED: IBUPROFEN 600 MG TABLET (FP) PO ONE ×2 (19:23)
[2022-08-17 19:59] LABS: BASO % 0.4 % (0-2.0); HEMATOCRIT 38.7 % (32.4-45.2); HEMOGLOBIN 13.2 GM/dL (10.7-15.3); LYMPH % 20.4 % (8-40); MCH 28.9 pg (25.7-33.7); MCHC 34.2 g/dl (32.0-36.0); MEAN CELL VOLUME 84.4 fl (80-96); MEAN PLT VOLUME 9.2 fl (7.5-11.1); MONO % 5.7 % (3.8-10.2); NEUT % 70.5 % (42.8-82.8); PLATELET COUNT 320 10^3/uL (134-434); RBC 4.59 M/mm3 (3.60-5.2); RDW 12.7 % (11.6-15.6)
[2022-08-17 20:35] LABS: CALCIUM 9.3 mg/dL (8.5-10.1)
[2022-08-17 20:36] LABS: BLOOD UREA NITROGEN 14.4 mg/dL (7-18)
[2022-08-17 20:39] LABS: CREATININE 0.7 mg/dL (0.55-1.3)
[2022-08-17] MEDS ORDERED: CLINDAMYCIN HCL 300 MG CAPSULE PO ONE (21:55)
== END 2022-08-17 22:08 | disposition home or self-care (01) ==
LOC: JERFT 17:25
DX: N61.1 Abscess of the breast and nipple (principal)
CPT/HCPCS: 36415; 76642-TC-RT; 80048; 85025; 99283-25

== ENCOUNTER → 2023-03-26 | Day surgery (SDC) | payer OTHER | END | disposition home or self-care (01) | LOC: JRADUS-SUR 11:40 | PROVIDERS: ATTEND Registered Nurse | PROC: 0H9U3ZX Drainage of Left Breast, Percutaneous Approach, Diagnostic (ICD-10-PCS; principal; 2023-03-26) | DX: N64.4 Mastodynia (principal) | CPT/HCPCS: 19083; 87899; 88305-TC; A4648 ==